=== PATIENT | female | born 1960 | race Two or more races ===

== ENCOUNTER 2019-05-27 12:58 | Inpatient (IN) | payer OTHER ==
[~2019-05-27] VITALS: Ht 157.5 cm; Wt 98.4 kg
[2019-06-16] MEDS ORDERED: MICARDIS40 MG PO (08:15)
[2019-06-16] MEDS ORDERED: SYNTHROID137 MCG PO (08:15)
[2019-06-16] MEDS ORDERED: TOPROL XL25 M1 PO (08:15)
[2019-06-16] MEDS ORDERED: OMEPRAZOLE20 MG PO (08:16)
[2019-06-16] MEDS ORDERED: HYDRODIURIL12.5 MG PO (08:16)
[2019-06-16] MEDS ORDERED: PAMELOR50 M1 PO (08:16)
[2019-06-16] MEDS ORDERED: METHOTREXATE (08:17)
[2019-06-16] MEDS ORDERED: BONIVA150 MG PO (08:17)
[2019-06-16] MEDS ORDERED: FOLIC ACID1 MG PO (08:17)
[2019-06-16] MEDS ORDERED: [UNRECOGNIZED DRUG - REMARK] PO (08:18)
[2019-06-16] MEDS ORDERED: TRAMADOL HCL50 MG PO (08:18)
[2019-06-16] MEDS ORDERED: PNEU16DI2 (08:18)
[2019-06-23] MEDS ORDERED: METHOTREXATE2.5 MG PO (07:48)
[2019-06-25] MEDS ORDERED: ELIQUIS2.5 MG PO (15:41)
== END 2019-06-25 18:53 | DRG 470 ==
LOC: SURG 06-16 07:15 → O/R 06-23 05:18 → SURH 06-23 05:18 → SURG 06-23 07:15 → SURH 06-23 11:33
PROVIDERS: ADMIT Orthopaedic Surgery
PROC: 0MNN0ZZ Release Right Knee Bursa and Ligament, Open Approach (ICD-10-PCS; 2019-06-23)
PROC: 0SRC0J9 Replacement of Right Knee Joint with Synthetic Substitute, Cemented, Open Approach (ICD-10-PCS; principal; 2019-06-23 09:45)
DX: M17.11 Unilateral primary osteoarthritis, right knee (principal); M80.00XA Age-related osteoporosis with current pathological fracture, unspecified site, initial encounter for fracture; M22.11 Recurrent subluxation of patella, right knee

== ENCOUNTER 2022-09-26 17:20 | Emergency (ER) | payer OTHER ==
[~2022-09-26] VITALS: Ht 157.5 cm; Wt 108.4 kg
[~2022-09-26 17:20] MED LIST: BONIVA150 MG PO; ELIQUIS2.5 MG PO; FOLIC ACID1 MG PO; HYDRODIURIL12.5 MG PO; METHOTREXATE; METHOTREXATE2.5 MG PO; MICARDIS40 MG PO; OMEPRAZOLE20 MG PO; PAMELOR50 M1 PO; PNEU16DI2; SYNTHROID137 MCG PO; TOPROL XL25 M1 PO; TRAMADOL HCL50 MG PO; [UNRECOGNIZED DRUG - REMARK] PO
== END 2022-09-26 19:07 | disposition home or self-care (01) ==
LOC: ER 17:20
DX: M54.89 Other dorsalgia (principal); Z88.6 Allergy status to analgesic agent; Z88.0 Allergy status to penicillin; Z88.2 Allergy status to sulfonamides